=== PATIENT | male | born 1985 ===

== ENCOUNTER 2018-11-06 16:01 | Emergency (ER) | payer BC, OTHER ==
[2018-11-06 16:15] VITALS: BP 120/80
--- NOTE | 2018-11-06 17:24 | UC ---
Dental HPI - HPI Summary HPI Summary: 33 yo with 2 day hx of increased left cheek pain and swelling, with associated dental pain. Low grade fever. No headache. Known decay in tooth. Took last ibuprofen 600mg about 8+ hours ago. - History of Current Complaint Chief Complaint: UCGeneralIllness Stated Complaint: DENTAL COMPLAINT Time Seen by Provider: 11/06/18 17:10 Hx Obtained From: Patient Onset/Duration: Gradual Onset, Lasting Days Severity: Moderate Pain Intensity: 6 Aggravating Factor(s): Chewing Alleviating Factor(s): OTC Meds Related History: Previous Dental Care on Same Tooth - Allergies/Home Medications Allergies/Adverse Reactions: Allergies Allergy/AdvReac Type Severity Reaction Status Date / Time No Known Allergies Allergy Verified 11/06/18 16:16 Home Medications: Home Medications Ibuprofen TAB* [Advil TAB*] 600 mg PO ONCE PRN 11/06/18 [History Confirmed 11/06] PMH/Surg Hx/FS Hx/Imm Hx Previously Healthy: Yes - Surgical History Surgical History: None - Family History Known Family History: Positive: None - parents alive and well, father smokes but does not have lung disease. - Social History Occupation: Employed Full-time Lives: With Family Alcohol Use: None Substance Use Type: None Smoking Status (MU): Never Smoked Tobacco Review of Systems All Other Systems Reviewed And Are Negative: Yes Constitutional: Positive: Fever Skin: Positive: Negative Eyes: Positive: Negative ENT: Positive: Dental Pain. Negative: Sore Throat, Ear Ache, Nasal Discharge, Sinus Congestion Respiratory: Positive: Negative. Negative: Shortness Of Breath, Cough Is Patient Immunocompromised?: No Physical Exam Triage Information Reviewed: Yes Appearance: Well-Appearing, Pain Distress - mild to moderate. Vital Signs: Initial Vital Signs Temp 99.3 F 11/06/18 16:07 Pulse 94 11/06/18 16:07 Resp 18 11/06/18 16:07 BP 120/80 11/06/18 16:07 Pulse Ox 97 11/06/18 16:07 ENT: Positive: Normal ENT inspection, Pharynx normal, Dental tenderness, Other - diffuse swelling of left cheek. No TMJ tenderness and no adenopathy Dental: Positive: Percussion Tenderness @ - 14, Gross Decay/Caries @ - 14 Neck: Positive: Supple, Nontender, No Lymphadenopathy Respiratory: Positive: Lungs clear, Normal breath sounds Cardiovascular: Positive: RRR, No Murmur Psychological Exam: Normal Images Dental: 1 - deep decay to gum level. Dental Complaint Course/Dx - Course Course Of Treatment: pen VK for dental abscess, ibuprofen for pain control - Differential Dx/Diagnosis Differential Diagnosis/Dx: Dental Caries, Fractured Tooth, TMJ Syndrome Provider Diagnosis: Abscess, dental Discharge ED - Sign-Out/Discharge Documenting (check all that apply): Patient Departure All imaging exams completed and their final reports reviewed: No Studies - Discharge Plan Condition: Stable Disposition: HOME Prescriptions: Penicillin VK 500 MG TAB(NF) [Penicillin VK 500 mg Tab] 500 mg PO QID #28 tab Patient Education Materials: Dental Abscess (ED) Referrals: No Primary Care Phys,NOPCP [Primary Care Provider] - Additional Instructions: Ensure that you call your dentist on Thursday to arrange an evaluation. Take penicillin 4 times daily for 7 days. Increase ibuprofen to 600mg up to 4 times daily for control of pain, and you can add acetaminophen if needed for control of pain. - Billing Disposition and Condition Condition: STABLE Disposition: Home
== END 2018-11-06 17:40 | disposition home or self-care (01) ==
LOC: MERGE 16:01 → UCEAST 16:01
DX: K04.7 Periapical abscess without sinus (principal)
CPT/HCPCS: 99212; G0463